=== PATIENT | male | born 1945 | race African-American/Black ===

== ENCOUNTER 2017-07-03 13:47 | Emergency (ER) | payer OTHER ==
[~2017-07-03] VITALS: Ht 177.8 cm; Wt 131.5 kg
[~2017-07-03 13:47] MED LIST: ASPIRIN325; ATENOLOL 100MG100 MG PO; BETIMOL15 ML OPHTHALMIC; CARBAMAZEPINE200 M2 PO; CELEXA20 MG PO; COLACE100 MG PO; DILATRATE-SR40 MG; INDAPAMIDE2.5 MG PO; KLOR-CON20 ME1 PO; MAG-AL PLUS SUS30 ML PO; PAIN RELIEF EX500 MG PO; PLAVIX 75 MG TA75 M1 PO; PRAVACHOL40 MG PO; RISPERDAL0.5 MG PO; XALATAN2.5 ML OPHTHALMIC
[2017-07-03 13:50] VITALS: BP 123/86
== END 2017-07-03 14:44 | disposition home or self-care (01) ==
LOC: ER 13:47
DX: H92.02 Otalgia, left ear (principal); M79.89 Other specified soft tissue disorders; I10 Essential (primary) hypertension; E78.00 Pure hypercholesterolemia, unspecified; I25.10 Atherosclerotic heart disease of native coronary artery without angina pectoris; I25.2 Old myocardial infarction; Z87.891 Personal history of nicotine dependence

== ENCOUNTER 2018-11-18 09:05 | Emergency (ER) | payer OTHER ==
[~2018-11-18] VITALS: Ht 180.3 cm; Wt 136.1 kg
[2018-11-18 10:38] LABS: ABSOLUTE NEUTROPHILS 6.4 thou/uL (1.4-8.2); BASOPHILS 0.4 % (0.0-2.0); EOSINOPHILS 2.2 % (0.0-3.0); HEMATOCRIT 40.5 % (42.0-52.0); HEMOGLOBIN 13.5 gm/dL (14.0-18.0); LYMPHOCYTES 20.7 % (24.0-44.0); MCHC 33.4 g/dL (28.0-37.0); MCV 95.9 fL (80.0-100.0); MONOCYTES 9.9 % (1.0-8.0); PLATELET COUNT 286 thou/uL (150-400); POLYS 66.8 % (36.0-66.0); RBC 4.23 mil/uL (4.50-6.00); RDW 13.2 % (10.5-14.5); WBC 9.6 thou/uL (4.0-11.0)
[2018-11-18 11:15] LABS: CALCIUM 9.3 mg/dL (8.5-10.1); CREATININE 1.3 mg/dL (0.7-1.3); MAGNESIUM 1.8 mg/dL (1.8-2.4); POTASSIUM 3.1 mmol/L (3.5-5.1)
[2018-11-18 12:39] VITALS: BP 131/81
--- NOTE | 2018-11-20 18:32 | EKG ---
[place] [address] [address] 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: ARIELA : 1945 Requested By: Maty Marshall Order Number: [id number] MD: Juan José Krishnan Measurements Intervals [place] Rate: 69 P: 49 LA: 209 QRS: -1 QRSD: 92 T: 72 QT: 456 QTc: 489 Interpretive Statements Sinus rhythm ventricular premature complexes Probable anteroseptal infarct, old Compared to ECG 03/23/2015 14:06:54 Ventricular premature complex(es) now present Electronically Signed On 11-20-2018 18:32:17 CDT by Juan José Krishnan [email or web address] ��������������������������������������������� <ELECTRONICALLY SIGNED> ���������������������������������������� By: Juan José Krishnan MD ��������������������������������������������� 11/20/18 1832 6 6 Juan José Krishnan MD /EPI
== END 2018-11-18 12:49 | disposition home or self-care (01) ==
LOC: ER 09:05
PROVIDERS: Emergency Medicine
DX: R42 Dizziness and giddiness (principal); I10 Essential (primary) hypertension; E78.00 Pure hypercholesterolemia, unspecified; F32.9 Major depressive disorder, single episode, unspecified; I25.10 Atherosclerotic heart disease of native coronary artery without angina pectoris; E11.9 Type 2 diabetes mellitus without complications; Z86.73 Personal history of transient ischemic attack (TIA), and cerebral infarction without residual deficits; Z87.891 Personal history of nicotine dependence

== ENCOUNTER 2020-03-14 14:31 | Inpatient (IN) | payer OTHER ==
[~2020-03-14] VITALS: Ht 180.3 cm; Wt 143.3 kg
--- NOTE | ~2020-03-14 | HC ---
[facility] [place] [address] CONSULTATION Name: YENIFER URIARTE Room #: 458-P ADM IN .R.#: [id number] Admission: 03/14/20 Attend Phys: Aime Green MD Discharge: Date of : 45 Report #: [id number] THIS REPORT FOR: cc: FAM - Family physician unknown FAM - Family physician unknown Nini Hernandez MD ~ DATE OF SERVICE: 03/15/2020 REASON FOR CONSULTATION: Acute kidney injury and hypercalcemia. REASON FOR PRESENTATION: Abnormal labs. HISTORY OF PRESENT ILLNESS: A 74-year-old with a history of hypertension, coronary artery disease, hyperlipidemia, status post stroke in 2014. He was sent from his clinic because of an abnormal lab. Further details are not available for me; however, the patient presented to the Emergency Room and was found to be in an acute kidney injury with a creatinine value of 4.5, calcium value of 14.6. The patient denies any prior knowledge of kidney issues. He denies any prior knowledge of any active malignancy. He takes blood pressure medication and is currently maintained on atenolol. He is also maintained on indapamide. The patient was admitted for further evaluation and management. I was consulted to manage his hypercalcemia and acute kidney injury. We do not have a baseline on the patient since 2018; however, his creatinine values in 2019 revealed that the patient's creatinine was in the 1.3 range. The patient denies any active urinary symptoms. No fever or chills. PAST MEDICAL HISTORY: 1. Hypertension. 2. Hyperlipidemia. 3. Stroke. 4. Seizure disorder. MEDICATIONS: 1. Carbamazepine. 2. Potassium chloride. 3. Indapamide. 4. Timolol. 5. Clopidogrel. 6. Acetaminophen. FAMILY HISTORY: Hypertension. SOCIAL HISTORY: Denies drug or alcohol abuse. [facility] [address] [place] [address] CONSULTATION Name: YENIFER URIARTE Room #: 458-P [facility]#: [id number] Admission: 03/14/20 Attend Phys: Aime Green MD Discharge: Date of : 45 Report #: [id number] ALLERGIES: None. REVIEW OF SYSTEMS: GENERAL: Significant for weakness and lethargy. CARDIOVASCULAR: No chest pain or palpitation. PULMONARY: No cough or hemoptysis. GASTROINTESTINAL: No nausea or vomiting. GENITOURINARY: No frequency, no urgency. PHYSICAL EXAMINATION: GENERAL: Blood pressure is 107/67, temperature is 36.5, pulse rate is 70. HEAD AND NECK: No jugular venous distention. CHEST: No crackles. CARDIOVASCULAR: No rub detected. ABDOMEN: Soft, nontender. LOWER EXTREMITIES: No edema. LABORATORY DATA: Hemoglobin is 9, platelet is 127. Sodium 138, potassium 3.3. BUN is 47, creatinine is 4.5. Calcium is 13.9, phosphorus is 5.1. Albumin is low at 2.1. IMPRESSION AND PLAN: 1. Acute kidney injury. 2. Hypercalcemia. 3. Findings are very concerning for an ongoing malignant process. Appropriate workup will be initiated. 4. Myeloma workup will also be sent. 5. Hematology consultation. 6. Continue with the normal saline. 7. Received Lasix yesterday with slight improvement in his calcium; however, he will need further treatment for his hypercalcemia and I will initiate appropriate treatment including bisphosphonate. 8. Continue to monitor renal function. 9. Continue to monitor electrolytes, calcium, urine output. 10. Avoid nephrotoxins. 11. We will continue to ____ By: 0733 0041 Nini Hernandez MD /nt
[2020-03-14 14:31] VITALS: BP 142/74
[2020-03-14 15:46] LABS: HEMATOCRIT 28.5 % (42.0-52.0); HEMOGLOBIN 9.6 gm/dL (14.0-18.0); MCH 34.6 pg (26.0-34.0); MCHC 33.6 g/dL (28.0-37.0); MCV 103.1 fL (80.0-100.0); RBC 2.76 mil/uL (4.50-6.00); RDW 14.3 % (10.5-14.5); WBC 12.3 thou/uL (4.0-11.0)
[2020-03-14 16:02] LABS: ALBUMIN 2.7 g/dL (3.4-5.0); CREATININE 4.6 mg/dL (0.7-1.3); POTASSIUM 4.3 mmol/L (3.5-5.1); TOTAL BILIRUBIN 0.4 mg/dL (0.2-1.0); TOTAL PROTEIN 10.5 g/dL (6.4-8.2)
[2020-03-14 16:06] LABS: CALCIUM 14.6 mg/dL (8.5-10.1)
[2020-03-14 16:23] LABS: ABSOLUTE NEUTROPHILS 8.5 thou/uL (1.4-8.2); NUCLEATED RBCS 1 /100WBC; PLATELET COUNT 145 thou/uL (150-400); PLATELET ESTIMATE NORMAL
[2020-03-14 16:40] LABS: URINE BILIRUBIN NEGATIVE (Negative); URINE BLOOD 2+ (Negative); URINE CLARITY CLEAR; URINE COLOR YELLOW; URINE GLUCOSE-RANDOM* NEGATIVE (Negative); URINE KETONES NEGATIVE (Negative); URINE LEUKOCYTES-REFLEX TRACE (Negative); URINE NITRITE-REFLEX NEGATIVE (Negative); URINE PROTEIN (DIPSTICK) 2+ (Negative); URINE SPECIFIC GRAVITY 1.015 (1.005-1.035); URINE UROBILINOGEN 0.2 E.U./dl (0.2-1.0)
[2020-03-14 16:53] LABS: BACTERIA-REFLEX >30 Many /HPF (None Seen); CASTS None Seen /LPF (None Seen); CRYSTALS None Seen /LPF (None Seen); URINE WBC-REFLEX 6-15 Few /HPF (0-5)
[2020-03-14 16:54] LABS: SQUAMOUS None Seen /LPF (0-3)
[2020-03-14 16:55] LABS: URINE RBC 0-2 Rare /HPF (0-2)
[2020-03-14 17:32] VITALS: BP 142/74
[2020-03-14 17:55] VITALS: BP 136/78
[2020-03-14 18:41] VITALS: BP 103/64
[2020-03-14 18:42] LABS: CREATININE 4.7 mg/dL (0.7-1.3); PHOSPHORUS 5.1 mg/dL (2.5-4.9)
[2020-03-14 18:52] LABS: CALCIUM 14.5 mg/dL (8.5-10.1)
--- NOTE | 2020-03-14 19:04 | NUR ---
ASSUMED CARE OF PATIENT APPROX 1830. CALCIUM 14.5, DOCTOR PAGED. NO SIGNS OF DISTRESS. AT BEDSIDE TO ASSIST WITH QUESTIONS. PATIENT A&OX2-3
[2020-03-14 20:07] VITALS: BP 97/62
[2020-03-15 00:10] VITALS: BP 102/64
[2020-03-15 04:13] VITALS: BP 107/67
[2020-03-15 05:40] LABS: HEMATOCRIT 27.1 % (42.0-52.0); MCHC 33.2 g/dL (28.0-37.0); MCV 102.6 fL (80.0-100.0); RBC 2.64 mil/uL (4.50-6.00); RDW 13.9 % (10.5-14.5); WBC 11.2 thou/uL (4.0-11.0)
--- NOTE | 2020-03-15 05:42 | NUR ---
ADMITTED FROM ER. AXOX1. VERY PLEASANT AND COOPERATIVE. VSS. NO S/S ACUTE DISTRESS NOTED OR REPORTED AT THIS TIME. WILL CONT TO MONITOR FOR ANY CHANGES IN CONDITION.
[2020-03-15 06:26] LABS: CREATININE 4.5 mg/dL (0.7-1.3)
[2020-03-15 06:29] LABS: CALCIUM 13.9 mg/dL (8.5-10.1)
[2020-03-15 06:30] LABS: POTASSIUM 3.3 mmol/L (3.5-5.1)
--- NOTE | 2020-03-15 07:34 | EKG ---
[facility] [place] [address] ELECTROCARDIOGRAM REPORT Name: URIARTEYENIFER Room #: 458-P ADM IN M.R.#: [id number] Admission: 03/14/20 Attend Phys: Aime Green MD Discharge: Date of : 45 Report #: [id number] THIS REPORT FOR: cc: FAM - Family physician unknown FAM - Family physician unknown Kurtis Young MD [facility] ~ THIS REPORT FOR: //name// [facility] ED Test Date: 2020-03-14 Test Time: 16:25:10 Pat Name: YENIFER URIARTE Department: Room: [facility] Gender: M Carpenter Form: VENUS : 1945 Requested By: Gerard Paniagua Order Number: [id number] MD: Kurtis Young Measurements Intervals [place] Rate: 76 P: 37 MA: 223 QRS: -8 QRSD: 94 T: 72 QT: 381 QTc: 429 Interpretive Statements Sinus rhythm Multiple ventricular premature complexes Prolonged MA interval Probable left atrial enlargement Left ventricular hypertrophy Anterior Q waves, possibly due to LVH Compared to ECG 11/18/2018 09:17:37 First degree AV block now present Left ventricular hypertrophy now present Q waves now present Myocardial infarct finding no longer present Electronically Signed On 03-15-2020 7:33:58 WOODWIND INSTRUMENT REPAIRER by Kurtis Young [email or web address] <ELECTRONICALLY SIGNED> By: Kurtis Young MD, FACC 03/15/20 0733 1625 1625 Kurtis Young MD, [facility] /EPI
[2020-03-15 08:47] VITALS: BP 131/88
--- NOTE | 2020-03-15 10:24 | NUR ---
PT ADMITTED RELATED TO KIDNEY FAILURE. CM REVIEWED CHART AND SPOKE WITH CARE TEAM. CM CALLED AND SPOKE WITH PT AND SPOUSE WHO WAS AT PT'S BEDSIDE OVER THE PHONE THIS AM. BOTH APPEARED TO BE A&O X4. CM ROLE INTRODUCED. PT'S SPOUSE INDICATED THAT THEY RESIDE IN A HOUSE WITH 2 STEPS TO ENTER AND NO STEPS PT USES INSIDE. 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 CHART INDICATED THAT PT HAS A CPAP FOR HOME USE. PT'S PCP IS DR. PRECIOUS OVALLES . SPOUSE INDICATED THAT THEY ARE RECEPTIVE TO HH SERVICES IF RECOMMENDED UPON DC. THEY INDICATED NO PREVIOUS SERVICES AND NO PREFERENCE FOR PROVIDERS. HH PROVIDE TO BE FOUND. CM TO FOLLOW INDICATED WITH DC PLANNING.
--- NOTE | 2020-03-15 14:14 | NUR ---
FAXED REFERRAL TO [facility] HH SPOKE WITH [facility] IN INTAKE THEY CAN ACCEPT AT [place].
[2020-03-15 14:15] VITALS: BP 131/88
[2020-03-15 14:24] VITALS: BP 131/88
[2020-03-15 15:08] LABS: KAPPA FREE LIGHT CHAINS 23.6 mg/L (3.3-19.4); LAMBDA FREE LIGHT CHAINS 6528.3 mg/L (5.7-26.3)
[2020-03-15 17:18] LABS: URINE BILIRUBIN NEGATIVE (Negative); URINE BLOOD 2+ (Negative); URINE CLARITY CLEAR; URINE COLOR YELLOW; URINE GLUCOSE-RANDOM* NEGATIVE (Negative); URINE KETONES NEGATIVE (Negative); URINE LEUKOCYTES TRACE (Negative); URINE NITRITE NEGATIVE (Negative); URINE PROTEIN (DIPSTICK) 1+ (Negative); URINE SPECIFIC GRAVITY 1.015 (1.005-1.035); URINE UROBILINOGEN 0.2 E.U./dl (0.2-1.0)
[2020-03-15 17:40] LABS: SQUAMOUS None Seen /LPF (0-3); URINE WBC 0-5 Rare /HPF (0-5)
[2020-03-15 17:41] LABS: BACTERIA >30 Many /HPF (None Seen); CASTS None Seen /LPF (None Seen); CRYSTALS None Seen /LPF (None Seen); URINE RBC 3-10 Few /HPF (0-2)
--- NOTE | 2020-03-15 18:22 | NUR ---
ASSUMED CARE OF PATIENT AT SHIFT CHANGE. ASSESSMENT CHARTED. MEDS GIVEN PER MAR. VSS. PATIENT IS ALERT TO SELF AND PLACE BUT CONFUSED ON TIME AND SITUATION. PATIENT DENIES PAIN. PT/OT WORKED WITH PATIENT TODAY; TOLERATED WELL. SBA TO CHAIR. USING URINAL AND VOIDING WELL. URINE COLLECTED AND SENT FOR ANALYSIS. IVF INFUSING ON NO ISSUES. MONITORING LABS AND AWAITING FURTHER ORDERS/TREATMENT FOR HYPERCALCEMIA. FALL PRECAUTIONS IN PLACE. FAMILY AT BEDSIDE. WILL CONTINUE TO MONITOR AND FOLLOW PLAN OF CARE
[2020-03-15 20:03] VITALS: BP 115/73
--- NOTE | 2020-03-16 04:11 | NUR ---
RECEIVED ALERT AND AWAKE IN BED. VSS. NO S/S ACUTE DISTRESS NOTED OR REPORTED AT THIS TIME. WILL CONT TO MONITOR FOR ANY CHANGES IN CONDITIOON.
[2020-03-16 05:34] LABS: HEMATOCRIT 27.1 % (42.0-52.0); HEMOGLOBIN 9.1 gm/dL (14.0-18.0); MCH 34.5 pg (26.0-34.0); MCHC 33.6 g/dL (28.0-37.0); MCV 102.8 fL (80.0-100.0); RBC 2.64 mil/uL (4.50-6.00); RDW 13.9 % (10.5-14.5); WBC 10.3 thou/uL (4.0-11.0)
[2020-03-16 06:28] LABS: ALBUMIN 2.6 g/dL (3.4-5.0); CREATININE 4.1 mg/dL (0.7-1.3); PHOSPHORUS 4.8 mg/dL (2.5-4.9); POTASSIUM 3.6 mmol/L (3.5-5.1)
[2020-03-16 07:48] VITALS: BP 129/79
[2020-03-16 16:18] VITALS: BP 123/65
--- NOTE | 2020-03-16 20:21 | NUR ---
ASSUMED CARE OF PATIENT AT 0700. ASSESSMENT CHARTED. MEDICATIONS ADMINISTERED PER MAR. VSS. PATIENT IS ALERT&OX2-3 AND VERY PLEASANT. IS SBA AND USES URINAL. FLUIDS INFUSING ON L FA W NO ISSUES. HOSPITALIST SAW PATIENT AND SPOKE WITH HIM AND FAMILY ABOUT POSSIBLE DIAGNOSIS. ALSO AWARE OF UPCOMING TESTS AND DIAGNOSTICS. SPOUSE AT BEDSIDE. USING URINAL W GOOD INPUT. DENIES PAIN AND VOICES NO OTHER CONCERNS AT THIS TIME. CHAIR ALARM ON; POSSESIONS NEAR BEDSIDE. WILL ENDORSE TO NOC RN
[2020-03-17 01:05] LABS: IgG 3898 mg/dL (603-1613); IgM 26 mg/dL (15-143)
[2020-03-17 02:05] LABS: IgA 42 mg/dL (61-437)
[2020-03-17 04:31] VITALS: BP 116/65
[2020-03-17 05:37] LABS: ALBUMIN 2.4 g/dL (3.4-5.0); CALCIUM 11.8 mg/dL (8.5-10.1); CREATININE 3.9 mg/dL (0.7-1.3); PHOSPHORUS 3.8 mg/dL (2.5-4.9); POTASSIUM 3.5 mmol/L (3.5-5.1)
[2020-03-17 07:28] VITALS: BP 126/75
--- NOTE | 2020-03-17 08:30 | NUR ---
progress vss, sat in chair and slept all night tele intact reading sr with 1st degres av block. vss medications given as ordered pt impulsive and pulled iv and getting oob unassited. continue fall precautions and close monitoring
[2020-03-17 13:45] VITALS: BP 122/67
[2020-03-17 19:18] VITALS: BP 123/63
--- NOTE | 2020-03-17 21:05 | NUR ---
PT A&OX2-3, VSS, NO PAIN. TWO IVS PATENT. MEDS GIVEN PER MAR. PATIENT PREFERED RECLINER MOST OF DAY. NO SIGNS OF DISTRESS. WILL CONTINUE TO MONITOR.
[2020-03-17 22:06] LABS: IgA 41 mg/dL (61-437); IgG 3771 mg/dL (603-1613); IgM 25 mg/dL (15-143)
[2020-03-18 06:00] LABS: ALBUMIN 2.5 g/dL (3.4-5.0); CALCIUM 10.8 mg/dL (8.5-10.1); CREATININE 3.9 mg/dL (0.7-1.3); PHOSPHORUS 3.4 mg/dL (2.5-4.9); POTASSIUM 3.4 mmol/L (3.5-5.1)
[2020-03-18 07:20] VITALS: BP 119/89
[2020-03-18 08:41] LABS: % SATURATION 42 % (20-39); IRON 83 ug/dL (65-175); TIBC 197 ug/dL (250-450)
[2020-03-18 09:03] LABS: FOLIC ACID 7.6 ng/mL (8.6-58.9)
[2020-03-18 09:20] LABS: ABSOLUTE RETIC COUNT 0.0442 10^6/uL; HEMATOCRIT 27.2 % (42.0-52.0); HEMOGLOBIN 9.1 gm/dL (14.0-18.0); MCH 34.6 pg (26.0-34.0); MCHC 33.4 g/dL (28.0-37.0); MCV 103.5 fL (80.0-100.0); OBSERVED RETIC COUNT 1.68 % (0.6-2.6); PLATELET COUNT 138 thou/uL (150-400); RBC 2.63 mil/uL (4.50-6.00); RDW 14.1 % (10.5-14.5); WBC 12.3 thou/uL (4.0-11.0)
[2020-03-18 12:03] LABS: ABSOLUTE NEUTROPHILS 7.7 thou/uL (1.4-8.2); MACROCYTES 1+; METAMYELOCYTES 2 %
--- NOTE | 2020-03-18 13:24 | NUR ---
CARE TEAM INDICATED THAT PT IS TO HAVE A BONE MARROW BIOPSY AND A BONE SCAN DONE. IT IS ANTICIPATED THAT PT WILL LIKELY BE MEDICALLY STABLE TO RETURN HOME WITH [facility] ONCE MEDICALLY STABLE.
[2020-03-18 14:55] VITALS: BP 123/77
--- NOTE | 2020-03-18 18:24 | NUR ---
ASSUMED CARE OF PATIENT AT APPROX. 0800. ASSESSMENT CHARTED. MEDICATION ADMINISTERED PER EMAR. VSS. PATIENT IS A&OX2-3 AND FORGETFUL. VERY PLEASANT AND HAPPY. BONE SCAN AND BONE MARROW BIOPSY DONE TODAY. PATIENT LEFT UNIT AT APPROX 0900; BLOOD THINNERS HELD UNTIL AFTER PROCEDURE. DENIED PAIN UPON RETURN TO UNIT. APPETITE VERY GOOD. PATIENT WORKED WITH PT/OT AND DID WELL. VOIDS PER URINAL W SOME DRIBBLING. DENIED ANY NEEDS THIS SHIFT. WILL ENDORSE TO NOC RN
--- NOTE | 2020-03-18 18:59 | NUR ---
I AGREE WITH NURSING ASSESSMENT AND NURSING NOTE NOTE DONE BY TIESHA/NEUROPSYCHOLOGY SERVICE DIRECTOR.
[2020-03-18 19:07] LABS: GLOBULIN TOTAL 5.9 g/dL (2.2-3.9); M-SPIKE 3.4 g/dL (Not Observed)
[2020-03-18 19:32] VITALS: BP 150/90
--- NOTE | 2020-03-18 20:59 | NUR ---
Assumed care on 03/18/20 @ 19:30, A&Ox2, Pleasant affect noted. NS running via RFA @ 150/Hr. Denies pain, Sits on the side of the bed to use urinal, voids yellow clear urine per urinal. Bed alarm set, bed in low position. Will continue to monitor as per unit protocol for safety and comfort.
[2020-03-19 07:25] VITALS: BP 145/98
[2020-03-19 09:02] LABS: CALCIUM 10.2 mg/dL (8.5-10.1); CREATININE 3.6 mg/dL (0.7-1.3); POTASSIUM 3.6 mmol/L (3.5-5.1)
[2020-03-19 09:50] LABS: ALBUMIN 2.5 g/dL (3.4-5.0); CALCIUM 10.4 mg/dL (8.5-10.1); CREATININE 3.7 mg/dL (0.7-1.3); PHOSPHORUS 2.7 mg/dL (2.5-4.9); POTASSIUM 3.6 mmol/L (3.5-5.1)
[2020-03-19 10:05] VITALS: BP 131/88
--- NOTE | 2020-03-19 11:03 | NUR ---
CARE TEAM INDICATED THAT PT IS MEDICALLY STABLE TO DISCHARGE HOME THIS DAY. [facility] CAN ACCEPT PT FOR SERVICES UPON DC. PT WAS ISSUED A FWW FOR HOME USE BY FOREIGN. CM SPOKE WITH PT'S SPOUSE AND SHE IS AWARE AND AGREEABLE WITH DC HOME THIS DAY. SHE WILL PROVIDE TRANSPORT HOME. CM TO FAX ORDERS TO [facility] ONCE FINISHED. NO OTHER CM INTERVENTION INDICATED. CASE CLOSED.
[2020-03-19 15:09] VITALS: BP 131/88
--- NOTE | 2020-03-19 15:33 | NUR ---
Alert and orientated to person and place. Calm, cooperative and compliant. Breath sounds clear t/o, bilaterally equal. Reg HR auscultated. Color pink with brisk capillary refill and palpable peripheral pulses. Yellow urine per urinal. Hypoactive bowel sounds over large, soft, round abdomen. Uses walker to ambulate with assistance. currently at side, awaiting discharge. No s/o distress. Will dc with per per personal vehicle.
== END 2020-03-19 16:19 | disposition home health service (06) | DRG 840 ==
LOC: ER 14:31 → EROBS 17:31 → 4W 17:31
PROVIDERS: Emergency Medicine; Hospitalist; Internal Medicine Hematology & Oncology; ADMIT Hospitalist; ATTEND Hospitalist
PROC: 07DR3ZX Extraction of Iliac Bone Marrow, Percutaneous Approach, Diagnostic (ICD-10-PCS; principal; 2020-03-18)
DX: C90.00 Multiple myeloma not having achieved remission (principal); N17.0 Acute kidney failure with tubular necrosis; E43 Unspecified severe protein-calorie malnutrition; R65.11 Systemic inflammatory response syndrome (SIRS) of non-infectious origin with acute organ dysfunction; N17.9 Acute kidney failure, unspecified; E83.52 Hypercalcemia; I10 Essential (primary) hypertension; E78.00 Pure hypercholesterolemia, unspecified; D64.9 Anemia, unspecified; D69.6 Thrombocytopenia, unspecified; R53.81 Other malaise; E11.9 Type 2 diabetes mellitus without complications; E87.5 Hyperkalemia; E78.5 Hyperlipidemia, unspecified; G40.909 Epilepsy, unspecified, not intractable, without status epilepticus; F32.9 Major depressive disorder, single episode, unspecified; I25.10 Atherosclerotic heart disease of native coronary artery without angina pectoris; I25.2 Old myocardial infarction; Z86.73 Personal history of transient ischemic attack (TIA), and cerebral infarction without residual deficits; Z79.01 Long term (current) use of anticoagulants; Z79.899 Other long term (current) drug therapy; Z87.891 Personal history of nicotine dependence
CPT/HCPCS: 10045

== ENCOUNTER 2021-01-16 06:48 | Day surgery (SDC) | payer OTHER ==
[~2021-01-16] VITALS: Ht 180.3 cm; Wt 136.1 kg
[~2021-01-16 06:48] MED LIST changes: +ACYCLOVIR 400400 MG PO; +K-DUR 20 MEQ T20 MEQ PO
[2021-01-16 08:50] VITALS: BP 121/72
--- NOTE | 2021-01-20 06:13 | O ---
[facility] [place] [address] OPERATIVE REPORT Name: YENIFER URIARTE JR Room #: DEP 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 PROCEDURES: 1. Bilateral lower lid ectropion repair. 2. Excision of lesion of right lower lid and canthus with myocutaneous flap repair of defect. SURGEON: Tylor Olivas MD CATTLE BRANDER: None. ANESTHESIA: MAC. COMPLICATIONS: None. INDICATIONS FOR SURGERY: This pleasant 75-year-old gentleman has severe bilateral lower lid ectropion with chronic irritation and discharge from both sides. He has several epithelial inclusion cysts around his lid margin, the largest of which is over his right lower lid lateral canthus and cheek, which is polycystic in nature and stays chronically irritated. He presents today for bilateral lower lid ectropion repair combined with an excision of the lesion of his right lower lid and cheek with flap repair of that defect. Informed consent was obtained to include but not limited to the potential risk for loss of vision, bleeding, infection, failure to improve the problem, the potential need for further surgery or treatment. DESCRIPTION OF PROCEDURE: The patient was taken to the operating room where 2% Xylocaine with epinephrine mixed with equal parts 0.75% Marcaine with Wydase was administered to each lower lid and lateral canthus. In addition, on the right side, the infratemporal fossa and the cheek were anesthetized. The patient was subsequently prepped and draped in the usual sterile fashion. The left lateral canthus was then clamped with a Gordon clamp. A sharp canthotomy and cantholysis was then performed. Hemostasis was then re-achieved. [facility] [address] [place] [address] OPERATIVE REPORT Name: YENIFER URIARTE Room #: DEP [facility].#: [id number] Admission: 01/16/21 Attend Phys: Tylor Olivas MD Discharge: 01/16/21 Date of : 45 Report #: [id number] A tarsal strip was then prepared laterally removing the lash hair-bearing portion of the redundant lid margin and the redundant tarsal plate. Hemostasis was once more re-achieved. The tarsal plate was then reattached to the internal portion of the lateral orbital tubercle with interrupted 5-0 Prolene sutures. The subcutaneous structures and the skin were then closed with interrupted 6-0 plain gut sutures. Attention was then turned to the other side. An incision was then made around the superior edge of the polycystic inclusion cyst with a Vania scissor and carried down to the base of the lesion ensuring that the lesion was not ruptured. This extended all the way down to the periosteum surprisingly. The dissection was carried out 360 degrees extending the incision back towards the external auditory meatus. The lesion was excised completely with the overlying skin that could not be from the lesion itself. The area inferiorly and laterally was then widely undermined to allow myocutaneous flap to be developed. Hemostasis was then re-achieved. The flap was then advanced and secured with multiple interrupted 6-0 plain gut sutures. The right lateral canthus was then clamped with a Gordon clamp. A sharp canthotomy and cantholysis was then performed. Hemostasis was then re-achieved. A tarsal strip was then prepared, removing the lash hair-bearing portion of the redundant lid margin and the redundant tarsal plate. Hemostasis was once more re-achieved. The tarsal strip was then reattached to the internal portion of the lateral orbital tubercle with interrupted 5-0 Prolene sutures. The subcutaneous structures and the skin were then finally closed with a 6-0 plain gut suture. The wounds were then cleaned and dressed with erythromycin ophthalmic ointment. The patient was subsequently transported to the recovery area having tolerated the procedures well with no anesthetic or operative complications being noted. <ELECTRONICALLY SIGNED> By: Tylor Olivas MD 01/20/21 0613 0732 0753 Tylor Olivas MD /nt
== END 2021-01-16 09:25 | disposition home or self-care (01) ==
LOC: OR 06:48 → TBA 06:48 → OR 09:25
PROVIDERS: ATTEND Ophthalmology
DX: H02.102 Unspecified ectropion of right lower eyelid (principal); H02.105 Unspecified ectropion of left lower eyelid; H10.401 Unspecified chronic conjunctivitis, right eye; H18.9 Unspecified disorder of cornea; L72.0 Epidermal cyst; I12.9 Hypertensive chronic kidney disease with stage 1 through stage 4 chronic kidney disease, or unspecified chronic kidney disease; N18.4 Chronic kidney disease, stage 4 (severe); I25.10 Atherosclerotic heart disease of native coronary artery without angina pectoris; E78.5 Hyperlipidemia, unspecified; F32.9 Major depressive disorder, single episode, unspecified; E11.9 Type 2 diabetes mellitus without complications; G40.909 Epilepsy, unspecified, not intractable, without status epilepticus; Z98.890 Other specified postprocedural states; Z79.899 Other long term (current) drug therapy; Z87.891 Personal history of nicotine dependence; Z20.822 Contact with and (suspected) exposure to COVID-19
CPT/HCPCS: 50010; 50101; 50386; 50398; 51636; 56527; 56531; 62110; 62850; 70005